=== PATIENT | female | born 1990 | race African-American/Black ===

== ENCOUNTER 2017-01-07 10:30 | Emergency (ER) | payer OTHER ==
[~2017-01-07] VITALS: Ht 167.6 cm; Wt 61.0 kg
[2017-01-07] MEDS ORDERED: POVIDONE-IODINE 15 ML SOLUTION UD TP ONE (11:15)
[2017-01-07] MEDS ORDERED: LIDOCAINE HCL BUFFERED 1% 20 ML VIAL INJ ONE (11:15)
[2017-01-07] MEDS ORDERED: PERTUSS(ACELL),DIPH,TET VAC/PF 0.5 ML VIAL IM ONE (11:15)
[2017-01-07] MEDS ORDERED: IBUPROFEN 600 MG TABLET PO ONE (11:45)
[2017-01-07] MEDS ORDERED: BACITRACIN 0.9 GM PACKET OINTMENT TP ONE (13:15)
[2017-01-07 13:39] VITALS: BP 118/82
== END 2017-01-07 13:40 | disposition home or self-care (01) ==
LOC: EMS 10:31
DX: S61.022A Laceration with foreign body of left thumb without damage to nail, initial encounter (principal); W22.8XXA Striking against or struck by other objects, initial encounter; Y93.89 Activity, other specified; Y92.090 Kitchen in other non-institutional residence as the place of occurrence of the external cause; Y99.8 Other external cause status
CPT/HCPCS: 12002; 90471; 90715; 99283; J3490